=== PATIENT | female | born 1995 | race Caucasian/White ===

== ENCOUNTER 2018-03-22 08:12 | Emergency (ER) | payer OTHER, MEDICAID ==
[~2018-03-22] VITALS: Ht 165.1 cm; Wt 65.8 kg
[2018-03-22 08:57] LABS: URINE BILIRUBIN NEGATIVE (Negative); URINE BLOOD NEGATIVE (Negative); URINE CLARITY CLEAR; URINE COLOR YELLOW; URINE GLUCOSE-RANDOM NEGATIVE (Negative); URINE KETONES NEGATIVE (Negative); URINE NITRITE-REFLEX NEGATIVE (Negative); URINE PROTEIN NEGATIVE (Negative); URINE UROBILINOGEN 0.2 E.U./dl (0.2-1.0)
[2018-03-22 09:01] LABS: URINE LEUKOCYTES-REFLEX 2+ (Negative)
[2018-03-22 09:06] LABS: MUCUS >6 Heavy strn/LPF (None Seen); SQUAMOUS >10 Many /LPF (0-3)
[2018-03-22 09:07] LABS: CASTS None Seen /LPF (None Seen); CRYSTALS None Seen /LPF (None Seen); URINE RBC 0-2 Rare /HPF (0-2); URINE WBC-REFLEX 0-5 Rare /HPF (0-5)
[2018-03-22] MEDS ORDERED: ATROVENT 0.06% NASAL (10:06)
[2018-03-22 10:16] VITALS: BP 116/71
== END 2018-03-22 10:17 | disposition home or self-care (01) ==
LOC: M.ERS 08:12
PROVIDERS: Personal Emergency Response Attendant
DX: O26.891 Other specified pregnancy related conditions, first trimester (principal); H92.01 Otalgia, right ear; Z3A.00 Weeks of gestation of pregnancy not specified

== ENCOUNTER 2019-01-29 17:41 | Emergency (ER) | payer OTHER, MEDICAID ==
[~2019-01-29] VITALS: Ht 165.1 cm; Wt 67.1 kg
[~2019-01-29 17:41] MED LIST: ATROVENT 0.06% NASAL
[2019-01-29] MEDS ORDERED: IBUPROFEN 600600 M1 PO (19:35)
[2019-01-29] MEDS ORDERED: ACETAMINOPHEN-1 EAC1 PO (19:35)
[2019-01-29 20:40] VITALS: BP 124/78
== END 2019-01-29 20:41 | disposition home or self-care (01) ==
LOC: M.ERS 17:41
DX: S16.1XXA Strain of muscle, fascia and tendon at neck level, initial encounter (principal); S40.021A Contusion of right upper arm, initial encounter; S00.03XA Contusion of scalp, initial encounter; Y04.2XXA Assault by strike against or bumped into by another person, initial encounter; Y92.89 Other specified places as the place of occurrence of the external cause; Y93.89 Activity, other specified; Y99.8 Other external cause status

== ENCOUNTER 2019-09-01 12:50 | Emergency (ER) | payer OTHER, MEDICAID ==
[~2019-09-01] VITALS: Ht 165.1 cm; Wt 64.9 kg
[~2019-09-01 12:50] MED LIST changes: +ACETAMINOPHEN-1 EAC1 PO; +IBUPROFEN 600600 M1 PO
[2019-09-01 13:08] LABS: URINE BILIRUBIN NEGATIVE (Negative); URINE BLOOD NEGATIVE (Negative); URINE CLARITY CLEAR; URINE COLOR YELLOW; URINE GLUCOSE-RANDOM NEGATIVE (Negative); URINE KETONES NEGATIVE (Negative); URINE LEUKOCYTES-REFLEX NEGATIVE (Negative); URINE NITRITE-REFLEX NEGATIVE (Negative); URINE PROTEIN TRACE (Negative); URINE SPECIFIC GRAVITY >= 1.030 (1.005-1.030); URINE UROBILINOGEN 0.2 E.U./dl (0.2-1.0)
[2019-09-01 14:19] LABS: ABSOLUTE EOSINOPHILS 0.1 thou/uL (0.0-0.7); ABSOLUTE LYMPHOCYTES 1.6 thou/uL (0.8-5.3); ABSOLUTE MONOCYTES 0.5 thou/uL (0.0-1.2); ABSOLUTE NEUTROPHILS 3.9 thou/uL (1.6-8.1); BASOPHILS 0.5 %; EOSINOPHILS 1.7 %; HEMATOCRIT 38.8 % (37.0-47.0); HEMOGLOBIN 12.7 gm/dL (12.0-15.0); LYMPHOCYTES 25.6 %; MCHC 32.7 g/dL (28.0-37.0); MCV 76.5 fL (80.0-100.0); MONOCYTES 8.5 %; MPV 9.1 fl. (7.2-11.1); NUCLEATED RBCS 0 /100WBC; PLATELET COUNT* 187 thou/uL (150-400); POLYS 63.7 %; RBC 5.08 mil/uL (4.20-5.00); RDW-CV 16.5 % (10.5-14.5); WBC 6.1 thou/uL (4.0-11.0)
[2019-09-01 14:30] LABS: CALCIUM 8.6 mg/dL (8.5-10.1); CREATININE 0.7 mg/dL (0.6-1.3); POTASSIUM 3.8 mmol/L (3.5-5.1)
[2019-09-01 14:35] LABS: ALBUMIN 3.6 g/dL (3.4-5.0); TOTAL BILIRUBIN 0.2 mg/dL (<0.1-1.0); TOTAL PROTEIN 7.2 g/dL (6.4-8.2)
[2019-09-01] MEDS ORDERED: PYRIDIUM100 M1 PO (14:35)
[2019-09-01] MEDS ORDERED: NAPROSYN500 MG PO (14:35)
[2019-09-01 14:57] VITALS: BP 109/70
== END 2019-09-01 14:59 | disposition home or self-care (01) ==
LOC: M.ERS 12:50
PROVIDERS: Physician Assistant
DX: R10.2 Pelvic and perineal pain (principal); Z87.442 Personal history of urinary calculi; Z90.49 Acquired absence of other specified parts of digestive tract